=== PATIENT | female | born 2000 | race Hispanic/Latino ===

== ENCOUNTER 2018-09-14 17:35 | Emergency (ER) | payer OTHER, SELFPAY ==
--- OUTSIDE RECORDS SUMMARY | 2018-09-14 17:36 | XMS REPORT ---
:2000 Author Organization [facility] Address [address] [place] [address] Dr. Agudelo [address] [place] [id number] Care Team Providers Name Role Phone Unavailable Unavailable Unavailable Problems This patient has no known problems. Allergies, Adverse Reactions, Alerts This patient has no known allergies or adverse reactions. Medications This patient has no known medications.
[2018-09-14] MEDS ORDERED: NA CHLORIDE 0.9% 1,000 ML ONE ×2 (18:28→20:51)
[2018-09-14] MEDS ORDERED: METOCLOPRAMIDE 10 MG/2mL INJ ONE (18:28)
[2018-09-14 18:39] LABS: Absolute Lymphocytes (CBC) 0.8 K/uL (0.7-4.9); Absolute Monocytes 0.6 K/uL (0.1-1.3); Absolute Neutrophil 11.9 K/uL (1.8-8.0); Basophils % 0.1 % (0-1.3); Eosinophils % 0.4 % (0-4.4); Hematocrit 42.2 % (36.0-45.0); Lymphocytes % 5.6 % (15.3-44.8); MPV 9.2 fL (7.6-11.3); Monocytes % 4.8 % (3.3-12.3); RBC Red Blood Cell Count 4.86 M/uL (3.86-4.86)
[2018-09-14 19:00] LABS: ALT/SGPT 41 U/L (12-78); AST/SGOT 22 U/L (15-37); Albumin 4.1 g/dL (3.4-5.0); Alkaline Phosphatase 80 U/L (45-117); BUN Blood Urea Nitrogen 12 mg/dL (7-18); Bicarbonate 21 mmol/L (21-32); Bilirubin Direct 0.1 mg/dL (0-0.2); Bilirubin Total 0.6 mg/dL (0.2-1.0); Glucose Level 77 mg/dL (74-106); Lipase 95 U/L (73-393); Potassium 3.4 mmol/L (3.5-5.1); Protein, Total 8.8 g/dL (6.4-8.2); Sodium Level 140 mmol/L (136-145)
--- NOTE | 2018-09-14 20:29 | RAD REPORT ---
EXAM DESCRIPTION: US - Abdomen Exam Limited - 09/14/2018 7:51 pm CLINICAL HISTORY: Abdominal pain COMPARISON: None. FINDINGS: No gallstones, sludge or other abnormalities within the gallbladder lumen. There is no wal l thickening or pericholecystic fluid. No common duct stone or biliary tree dilatation identified. IMPRESSION: Normal gallbladder and biliary tree ultrasound.
[2018-09-14] MEDS ORDERED: MORPHINE 2 MG/ML SYR ONE (20:40)
[2018-09-14] MEDS ORDERED: DICYCLOMINE HCL 10 MG CAP ONE (20:40)
[2018-09-14 20:55] LABS: Urine Specific Gravity >1.030 (1.005-1.030)
[2018-09-14 20:56] LABS: Urine Blood 2+ (NEG); Urine Glucose NEGATIVE (NEG); Urine Protein 1+ (NEG); Urine pH 5.5 (5.0-7.0)
--- NOTE | 2018-09-14 22:09 | ER ---
Nurse's Notes [facility] Name: Sima Quinn Age: 17 yrs Sex: Female : 2000 Arrival Date: 09/14/2018 Time: 17:38 Bed 5 Private MD: Diagnosis: Vomiting;Diarrhea, unspecified;Generalized abdominal pain Presentation: 09/14 17:46 Presenting complaint: sister in law: she is throwing up and has diarrhea since early tw2 this morning around 3 am, abdominal pain, she has a hx of gastritis and she is also . Presenting complaint:. Transition of care: patient was not received from another setting of care. Onset of symptoms was September 14, 2018. Risk Assessment: Do you want to hurt yourself or someone else? Patient reports no desire to harm self or others. Initial Sepsis Screen: Does the patient meet any 2 criteria? No. Patient's initial sepsis screen is negative. Does the patient have a suspected source of infection? No. Patient's initial sepsis screen is negative. Care prior to arrival: None. 17:46 Method Of Arrival: Ambulatory tw2 17:46 Acuity: PARRIS 3 tw2 Triage Assessment: 17:47 General: Appears in no apparent distress. obese, Behavior is calm, cooperative, tw2 appropriate for age. Pain: Complains of pain in abdomen. GI: Reports lower abdominal pain, upper abdominal pain, diarrhea, nausea, vomiting. 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 - Social history:: Smoking status: . - Ebola Screening: : Patient denies travel to an Ebola-affected area in the 21 days before illness onset. Screenin:22 Abuse screen: Denies threats or abuse. Denies injuries from another. Nutritional hb screening: No deficits noted. Tuberculosis screening: No symptoms or risk factors identified. Fall Risk None identified. Assessment: 18:20 General: Appears in no apparent distress. Behavior is calm, cooperative. Pain: Pain hb currently is 3 out of 10 on a pain scale. Neuro: Level of Consciousness is awake, alert, obeys commands, Oriented to person, place, time, situation. Cardiovascular: Capillary refill < 3 seconds Patient's skin is warm and dry. Respiratory: Airway is patent Respiratory effort is even, unlabored, Respiratory pattern is regular, symmetrical. GI: Abdomen is non-distended, Bowel sounds present X 4 quads. Abd is soft and non tender X 4 quads. Reports lower abdominal pain, upper abdominal pain, diarrhea, nausea, vomiting. : No signs and/or symptoms were reported regarding the genitourinary system. EENT: No signs and/or symptoms were reported regarding the EENT system. Derm: Skin is intact, is healthy with good turgor, Skin is dry, Skin is pale, Skin temperature is warm. Musculoskeletal: No signs and/or symptoms reported regarding the musculoskeletal system. 19:49 Reassessment: Patient appears in no apparent distress at this time. No changes from ak1 previously documented assessment. Patient and/or family updated on plan of care and expected duration. Pain level reassessed. Patient is alert, oriented x 3, equal unlabored respirations, skin warm/dry/pink. pt to US and returned. 20:42 Reassessment: pt tolerated water PO. pt informed to "pump and dump" due to breast bb feeding. pt verbalized understanding. will continue to monitor. 22:34 Reassessment: Patient is alert, oriented x 3, equal unlabored respirations, skin bb warm/dry/pink. pt verbalized understanding of and agrees to plan of care discharge instructions given pt ambulated with steady gait to exit accompanied by spouse Patient states feeling better. Patient states symptoms have improved. Vital Signs: 17:48 BP 109 / 86; Pulse 114; Resp 17; Temp 98.6(TE); Pulse Ox 99% on R/A; Weight 77.11 kg tw2 (R); Height 5 ft. 2 in. (157.48 cm); Pain 9/10; 18:20 BP 119 / 76; Pulse 94; Resp 16; Pulse Ox 100% on R/A; hb 20:44 BP 126 / 84; Pulse 100; Resp 16; Temp 98.6; Pulse Ox 100% on R/A; Pain 0/10; bb 22:35 BP 125 / 77; Pulse 96; Resp 16 S; Temp 98.9(O); Pulse Ox 100% on R/A; bb 17:48 Body Mass Index 31.09 (77.11 kg, 157.48 cm) tw2 ED Course: 17:38 Patient arrived in ED. mr 17:47 Triage completed. tw2 17:48 Arm band placed on. tw2 17:51 Hank Emery PA is PHCP. jmm 17:51 Brian Menchaca MD is Attending Physician. jmm 18:18 Inserted saline lock: 20 gauge in right antecubital area, using aseptic technique. hb Blood collected. 18:20 Lynnette Doe, RN is Primary Nurse. hb 18:22 Patient has correct armband on for positive identification. Bed in low position. Call hb light in reach. Side rails up X 1. 19:02 Report given to Renae RODRIGUEZ and Renae RODRIGUEZ. sv 19:51 US Abdomen Limited In Process Unspecified. EDMS 20:22 Radiology exam delayed due to test not completed at this time. nj 21:00 CT Abd/Pelvis - W/Contrast In Process Unspecified. EDMS 21:00 CT completed. Patient tolerated procedure well. Patient moved back from CT. vm2 22:36 No provider procedures requiring assistance completed. IV discontinued, intact, bb bleeding controlled, No redness/swelling at site. Pressure dressing applied. Administered Medications: 18:25 Drug: NS 0.9% 1000 ml Route: IV; Rate: 1 bolus; Site: right antecubital; hb 19:51 Follow up: IV Status: Completed infusion; IV Intake: 1000ml ak1 18:25 Drug: Reglan 10 mg Route: IVP; Site: right antecubital; hb 19:51 Follow up: Response: No adverse reaction ak1 20:41 Drug: Bentyl 20 mg Route: PO; bb 20:42 Follow up: Response: No adverse reaction bb 20:41 Drug: NS 0.9% 1000 ml Route: IV; Rate: 1 bolus; Site: right antecubital; bb 22:37 Follow up: IV Status: Completed infusion; IV Intake: 1000ml bb 20:42 Drug: morphine 2 mg Route: IVP; Site: right antecubital; bb 20:42 Follow up: Response: No adverse reaction bb Intake: 19:51 IV: 1000ml; Total: 1000ml. ak1 22:37 IV: 1000ml; Total: 2000ml. bb Outcome: 22:08 Discharge ordered by . steve 22:36 Discharged to home ambulatory, with family. bb 22:36 Condition: stable 22:36 Discharge instructions given to patient, Instructed on discharge instructions, follow up and referral plans. medication usage, Demonstrated understanding of instructions, follow-up care, medications, Prescriptions given X 1. 22:36 Patient left the ED. bb Signatures: Dispatcher [employer] EDMS Becky Mosley, RN RN Hank Soriano PA PA jmm Rivera, Mary mr Richi, Ursula RN RN Evette Blair RN RN ak1 Lynnette Doe RN RN Tracie Lozoya RN RN tw2 Raymundo Virk [facility]
--- NOTE | 2018-09-14 22:10 | EDPHYS ---
Physician Documentation [facility] Name: Sima Quinn Age: 17 yrs Sex: Female : 2000 Arrival Date: 09/14/2018 Time: 17:38 Bed 5 Private MD: ED Physician Brian Menchaca HPI: 09/14 18:31 This 17 yrs old Female presents to ER via Ambulatory with complaints of jmm Vomiting/Diarrhea. 18:31 The patient presents to the emergency department with nausea, vomiting, diarrhea, jmm abdominal pain. Onset: The symptoms/episode began/occurred acutely, this morning. Possible causes: unknown. This is a 17 year old female with a history of gastritis that presents to the ED with complaints of abdominal pain, vomiting and diarrhea beginning this morning at approx 0300. Pain is localized to the epigastric region. Denies fever. Denies dysuria. . 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 - Social history:: Smoking status: . - Ebola Screening: : Patient denies travel to an Ebola-affected area in the 21 days before illness onset. ROS: 18:31 Constitutional: Negative for fever, chills, and weight loss, Cardiovascular: Negative jmm for chest pain, palpitations, and edema, Respiratory: Negative for shortness of breath, cough, wheezing, and pleuritic chest pain. 18:31 Abdomen/GI: Positive for abdominal pain, nausea and vomiting, diarrhea. 18:31 All other systems are negative. Exam: 18:31 Constitutional: This is a well developed, well nourished patient who is awake, alert, jmm and in no acute distress. Head/Face: atraumatic. Eyes: EOMI, no conjunctival erythema appreciated ENT: Moist Mucus Membranes Neck: Trachea midline, Supple Chest/axilla: Normal chest wall appearance and motion. Cardiovascular: Regular rate and rhythm. No edema appreciated Respiratory: Normal respirations, no respiratory distress appreciated Abdomen/GI: Non distended, soft 18:31 Back: Normal ROM Skin: General appearance color normal MS/ Extremity: Moves all extremities, no obvious deformities appreciated, no edema noted to the lower extremities Neuro: Awake and alert, normal gait Psych: Behavior is normal, Mood is normal, Patient is cooperative and pleasant 18:31 Abdomen/GI: Inspection: abdomen appears normal, Bowel sounds: normal, Palpation: soft, mild abdominal tenderness, in the right upper quadrant and left upper quadrant. Vital Signs: 17:48 BP 109 / 86; Pulse 114; Resp 17; Temp 98.6(TE); Pulse Ox 99% on R/A; Weight 77.11 kg tw2 (R); Height 5 ft. 2 in. (157.48 cm); Pain 9/10; 18:20 BP 119 / 76; Pulse 94; Resp 16; Pulse Ox 100% on R/A; hb 20:44 BP 126 / 84; Pulse 100; Resp 16; Temp 98.6; Pulse Ox 100% on R/A; Pain 0/10; bb 22:35 BP 125 / 77; Pulse 96; Resp 16 S; Temp 98.9(O); Pulse Ox 100% on R/A; bb 17:48 Body Mass Index 31.09 (77.11 kg, 157.48 cm) tw2 MDM: 17:53 Patient medically screened. [facility] 22:07 Data reviewed: vital signs, nurses notes. Counseling: I had a detailed discussion with stvee the patient and/or guardian regarding: the historical points, exam findings, and any diagnostic results supporting the discharge/admit diagnosis, the need for outpatient follow up, to return to the emergency department if symptoms worsen or persist or if there are any questions or concerns that arise at home. 09/14 18:09 Order name: Basic Metabolic Panel; Complete Time: 19:04 [facility] 09/14 18:09 Order name: CBC with Diff; Complete Time: 19:04 [facility] 09/14 18:09 Order name: Creatinine for Radiology; Complete Time: 19:04 [facility] 09/14 18:09 Order name: Hepatic Function; Complete Time: 19:04 [facility] 09/14 18:09 Order name: Lipase; Complete Time: 19:04 [facility] 09/14 20:44 Order name: Urine Dipstick--Ancillary (enter results); Complete Time: 21:03 ks 09/14 19:05 Order name: US Abdomen Limited; Complete Time: 20:43 [facility] 09/14 20:18 Order name: CT Abd/Pelvis - W/Contrast [facility] 09/14 20:44 Order name: Urine --Ancillary (enter results); Complete Time: 21:03 ks 09/14 18:09 Order name: IV Saline Lock; Complete Time: 18:26 [facility] 09/14 18:09 Order name: Labs collected and sent; Complete Time: 18:26 [facility] 09/14 20:01 Order name: PO challenge; Complete Time: 20:41 [facility] Administered Medications: 18:25 Drug: NS 0.9% 1000 ml Route: IV; Rate: 1 bolus; Site: right antecubital; hb 19:51 Follow up: IV Status: Completed infusion; IV Intake: 1000ml ak1 18:25 Drug: Reglan 10 mg Route: IVP; Site: right antecubital; hb 19:51 Follow up: Response: No adverse reaction ak1 20:41 Drug: Bentyl 20 mg Route: PO; bb 20:42 Follow up: Response: No adverse reaction bb 20:41 Drug: NS 0.9% 1000 ml Route: IV; Rate: 1 bolus; Site: right antecubital; bb 22:37 Follow up: IV Status: Completed infusion; IV Intake: 1000ml bb 20:42 Drug: morphine 2 mg Route: IVP; Site: right antecubital; bb 20:42 Follow up: Response: No adverse reaction bb Disposition: 09/14/18 22:08 Discharged to Home. Impression: Vomiting, Diarrhea, unspecified, Generalized abdominal pain. - Condition is Stable. - Discharge Instructions: Diarrhea, Adult, Nausea and Vomiting, Adult. - Prescriptions for Zofran ODT 4 mg Oral tablet,disintegrating - place 1 tablet by TRANSLINGUAL route every 4-6 hours; 20 tablet. - Medication Reconciliation Form, Thank You Letter, Antibiotic Education, Prescription Opioid Use form. - Follow up: Private Physician; When: 2 - 3 days; Reason: Recheck today's complaints, Continuance of care, Re-evaluation by your physician. Signatures: Dispatcher [employer] EDMS Hank Emery PA PA Ursula Hubbard RN RN Lynnette Sandoval RN RN Tracie Overton RN RN tw2 Krenek, Evette RN ak1 Corrections: (The following items were deleted from the chart) 22:36 22:08 09/14/2018 22:08 Discharged to Home. Impression: Vomiting; Diarrhea, unspecified; bb Generalized abdominal pain. Condition is Stable. Forms are Medication Reconciliation Form, Thank You Letter, Antibiotic Education, Prescription Opioid Use. Follow up: Private Physician; When: 2 - 3 days; Reason: Recheck today's complaints, Continuance of care, Re-evaluation by your physician. steve
--- NOTE | 2018-09-15 13:38 | RAD REPORT ---
EXAM DESCRIPTION: CT - Abdomen Pelvis W Contrast - 09/14/2018 9:45 pm CLINICAL HISTORY: The patient is 17 years old and is Female; abdominal pain TECHNIQUE: Axial computed tomography images of the abdomen and pelvis with intravenous contrast. S agittal and coronal reformatted images were created and reviewed. This CT exam was performed using one or more of the following dose reduction techniques: automated exposure control, adjustment of t he mA and/or kV according to patient size, and/or use of iterative reconstruction technique. COMPARISON: None. FINDINGS: LUNG BASES: Unremarkable. No mass. No consolidation. ABDOMEN: LIVER: Unremarkable. No mass. GALLBLADDER AND BILE DUCTS: Unremarkable. No calcified stones. No ductal dilation. PANCREAS: Unremarkable. No mass. No ductal dilation. SPLEEN: Unremarkable. No splenomegaly. ADRENALS: Unremarkable. No mass. KIDNEYS AND URETERS: Unremarkable. No solid mass. No hydronephrosis. STOMACH AND BOWEL: Unremarkable. No obstruction. No mucosal thickening. PELVIS: APPENDIX: The appendix is seen and is within normal limits. BLADDER: The bladder is decompressed. REPRODUCTIVE: Mild heterogenous enlargement of the uterus is small amount of endometrial fluid. ABDOMEN and PELVIS: INTRAPERITONEAL SPACE: Unremarkable. No free air. No significant fluid collection. BONES/JOINTS: No acute fracture. No dislocation. SOFT TISSUES: Unremarkable. VASCULATURE: Unremarkable. No abdominal aortic aneurysm. LYMPH NODES: Unremarkable. No enlarged lymph nodes. IMPRESSION: 1. No acute abdominal or pelvic abnormality. 2. Incompletely evaluated physiologic pelvic changes with endometrial thickening/fluid. Electronically signed by: Scout Jimenez DO 09/14/2018 9:22 PM CDT Due to temporary technical issues with the PACS/Fluency reporting system, reports are being signed by the in house radiologist as a courtesy to ensure prompt reporting. The interpreting radiologist is f ully responsible for the content of the report.
== END 2018-09-14 22:36 | disposition home or self-care (01) ==
LOC: ER 17:35
DX: R19.7 Diarrhea, unspecified (principal); R10.84 Generalized abdominal pain
CPT/HCPCS: 36415; 74177; 76705; 80048; 80076; 81003; 81025; 83690; 85025; J2270; J2765; J7030; Q9967

== ENCOUNTER 2018-11-28 14:36 | Emergency (ER) | payer OTHER, SELFPAY ==
--- OUTSIDE RECORDS SUMMARY | 2018-11-28 14:38 | XMS REPORT ---
:2000 Author Organization [facility] Address [address] [place] [address] Care Team Providers Name Role Phone Unavailable Unavailable Unavailable Problems This patient has no known problems. Allergies, Adverse Reactions, Alerts This patient has no known allergies or adverse reactions. Medications This patient has no known medications.
[2018-11-28 15:34] LABS: Absolute Lymphocytes (CBC) 0.9 K/uL (0.7-4.9); Basophils % 0.3 % (0-1.3); Eosinophils % 0.7 % (0-4.4); Hematocrit 41.8 % (36.0-45.0); Lymphocytes % 9.5 % (15.3-44.8); MPV 9.5 fL (7.6-11.3); Monocytes % 5.6 % (3.3-12.3); RBC Red Blood Cell Count 4.86 M/uL (3.86-4.86)
[2018-11-28 15:51] LABS: ALT/SGPT 62 U/L (12-78); AST/SGOT 26 U/L (15-37); Albumin 3.6 g/dL (3.4-5.0); Alkaline Phosphatase 60 U/L (45-117); BUN Blood Urea Nitrogen 12 mg/dL (7-18); Bicarbonate 26 mmol/L (21-32); Bilirubin Direct 0.2 mg/dL (0-0.2); Bilirubin Total 0.5 mg/dL (0.2-1.0); Glucose Level 87 mg/dL (74-106); Lipase 89 U/L (73-393); Potassium 3.9 mmol/L (3.5-5.1); Protein, Total 7.4 g/dL (6.4-8.2); Sodium Level 141 mmol/L (136-145)
--- NOTE | 2018-11-28 16:30 | RAD REPORT ---
EXAM DESCRIPTION: US - Abdomen Exam Limited - 11/28/2018 4:20 pm CLINICAL HISTORY: Abdominal pain. COMPARISON: August 2018 FINDINGS: The gallbladder wall is not thickened. A gallstone is not seen. The biliary tree is normal caliber. IMPRESSION: Unremarkable gallbladder ultrasound.
[2018-11-28 16:38] LABS: Urine Blood NEGATIVE (NEG); Urine Glucose NEGATIVE (NEG); Urine Protein 1+ (NEG); Urine pH 7.5 (5.0-7.0)
[2018-11-28 16:41] LABS: Urine Bacteria <20 /HPF (<20); Urine Culture Reflex Order NOT NEEDED; Urine Mucus 1+ /HPF (NONE SEEN); Urine RBC <5 /HPF (NONE SEEN)
--- NOTE | 2018-11-28 17:38 | ER ---
Nurse's Notes [facility] Name: Sima Quinn Age: 18 yrs Sex: Female : 2000 Arrival Date: 11/28/2018 Time: 14:37 Bed 19 Private MD: Diagnosis: Other abdominal pain Presentation: 11/28 15:01 Presenting complaint: Patient states: epigastric pain and vomiting since yesterday, hx iw of gastric ulcer. Transition of care: patient was not received from another setting of care. Onset of symptoms was November 27, 2018. Risk Assessment: Do you want to hurt yourself or someone else? Patient reports no desire to harm self or others. Initial Sepsis Screen: Does the patient have a suspected source of infection? No. Patient's initial sepsis screen is negative. Care prior to arrival: None. 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 - Social history:: Smoking status: Patient/guardian denies using tobacco. - Ebola Screening: : Patient negative for fever greater than or equal to 101.5 degrees Fahrenheit, and additional compatible Ebola Virus Disease symptoms Patient denies exposure to infectious person Patient denies travel to an Ebola-affected area in the 21 days before illness onset No symptoms or risks identified at this time. Screenin:17 Abuse screen: Denies threats or abuse. Denies injuries from another. Nutritional aj screening: No deficits noted. Tuberculosis screening: No symptoms or risk factors identified. Fall Risk None identified. Assessment: 15:26 General: Appears in no apparent distress. comfortable, Behavior is calm, cooperative, aj appropriate for age. Pain: Complains of pain in right upper quadrant and left upper quadrant. Neuro: Level of Consciousness is awake, alert, obeys commands, Oriented to person, place, time, situation, Appropriate for age. Respiratory: Airway is patent Respiratory effort is even, unlabored, Respiratory pattern is regular, symmetrical. GI: Abdomen is non-distended, obese, Bowel sounds present X 4 quads. Abd is soft and non tender. GI: Reports upper abdominal pain, nausea, vomiting. Derm: Skin is intact, is healthy with good turgor, Skin is pink, warm \T\ dry. normal. 17:42 Reassessment: Patient appears in no apparent distress at this time. No changes from aj previously documented assessment. Patient and/or family updated on plan of care and expected duration. Pain level reassessed. Patient is alert, oriented x 3, equal unlabored respirations, skin warm/dry/pink. Patient denies pain at this time. Patient states feeling better. Vital Signs: 15:08 BP 129 / 75; Pulse 98; Resp 16; Temp 98.6(TE); Pulse Ox 99% on R/A; Weight 77.11 kg; iw Height 5 ft. 3 in. (160.02 cm); Pain 10/10; 16:11 BP 115 / 75; Pulse 87; Resp 16; Temp 98.7; Pulse Ox 100% on R/A; mh5 16:17 BP 123 / 82; Pulse 76; Resp 16; Pulse Ox 100% on R/A; aj 17:21 BP 104 / 68; Pulse 88; Resp 15; Temp 97.9(TE); Pulse Ox 100% on R/A; mh5 15:08 Body Mass Index 30.11 (77.11 kg, 160.02 cm) ED Course: 14:37 Patient arrived in ED. as 14:50 Hank Emery PA is PHCP. [facility] 14:50 Olvin Guan MD is Attending Physician. [facility] 15:00 Debbie Mello, JENNIFER is Primary Nurse. aj 15:08 Triage completed. iw 15:08 Arm band placed on. iw 15:08 Patient has correct armband on for positive identification. Bed in low position. Call 5 light in reach. Side rails up X 1. Pulse ox on. NIBP on. 15:20 Inserted saline lock: 22 gauge in left antecubital area, using aseptic technique. Blood aj collected. 15:25 Basic Metabolic Panel Sent. aj 15:25 Basic Metabolic Panel Sent. aj 15:25 CBC with Diff Sent. aj 15:25 Creatinine for Radiology Sent. aj 15:25 Hepatic Function Sent. aj 15:25 Lipase Sent. aj 16:12 Urine collected: clean catch specimen, clear. 5 16:14 Urine Microscopic Only Sent. 5 16:21 US Abdomen Limited In Process Unspecified. EDMS 16:21 Ultrasound completed. Patient tolerated well. sg3 17:37 Hayden Guzman MD is Referral Physician. stephen 17:42 No provider procedures requiring assistance completed. IV discontinued. aj Administered Medications: No medications were administered Outcome: 17:38 Discharge ordered by MD. steve 17:43 Discharged to home ambulatory. aj 17:43 Condition: good 17:43 Discharge instructions given to patient, Instructed on discharge instructions, follow up and referral plans. medication usage, Demonstrated understanding of instructions, follow-up care, medications, Prescriptions given X 2. 17:44 Patient left the ED. samantha Signatures: Dispatcher [employer] Debbie Guadarrama, Hank Zurita RN, PA PA jmm Martinez, Amelia as Williams, Irene, Susi Welch RN 5 Janna Snyder sg3 Corrections: (The following items were deleted from the chart) 17:26 17:21 Pulse 88bpm; Resp 15bpm; Pulse Ox 100% RA; Temp 97.9F Temporal; 5 5
--- NOTE | 2018-11-28 17:38 | EDPHYS ---
Physician Documentation [facility] Name: Sima Quinn Age: 18 yrs Sex: Female : 2000 Arrival Date: 11/28/2018 Time: 14:37 Bed 19 Private MD: ED Physician Olvin Guan HPI: 11/28 14:50 This 18 yrs old Female presents to ER via Ambulatory with complaints of jmm Abdominal Pain. 14:50 The patient presents with abdominal pain in the epigastric area. Onset: The jmm symptoms/episode began/occurred gradually, 1 day(s) ago. The symptoms do not radiate. Associated signs and symptoms: Pertinent positives: nausea and vomiting, diarrhea. Modifying factors: The symptoms are alleviated by nothing, the symptoms are aggravated by food. The patient has experienced similar episodes in the past. This is a 18 year old female with a history of gastritis that presents to the ED with complaints of epigastric abdominal pain for the past day with vomiting and diarrhea. . SENIOR FINANCIAL: 15:08 LMP N/A - control method iw Historical: - Allergies: 15:08 No Known Allergies; iw - Home Meds: 15:08 None [Active]; iw - PMHx: 15:08 gastritis; iw - PSHx: 15:08 None; iw - Immunization history:: Adult Immunizations unknown. - Social history:: Smoking status: Patient/guardian denies using tobacco. - Ebola Screening: : Patient negative for fever greater than or equal to 101.5 degrees Fahrenheit, and additional compatible Ebola Virus Disease symptoms Patient denies exposure to infectious person Patient denies travel to an Ebola-affected area in the 21 days before illness onset No symptoms or risks identified at this time. ROS: 14:50 Constitutional: Negative for fever, chills, and weight loss, Cardiovascular: Negative jmm for chest pain, palpitations, and edema, Respiratory: Negative for shortness of breath, cough, wheezing, and pleuritic chest pain. 14:50 Abdomen/GI: Positive for abdominal pain, nausea, vomiting. 14:50 All other systems are negative. Exam: 14:50 Head/Face: atraumatic. Eyes: EOMI, no conjunctival erythema appreciated ENT: Moist jmm Mucus Membranes Neck: Trachea midline, Supple Chest/axilla: Normal chest wall appearance and motion. Cardiovascular: Regular rate and rhythm. No edema appreciated Respiratory: Normal respirations, no respiratory distress appreciated 14:50 Constitutional: The patient appears in no acute distress, alert, awake. 14:50 Abdomen/GI: Inspection: abdomen appears normal, Bowel sounds: normal, Palpation: soft, mild abdominal tenderness, in the epigastric area and right upper quadrant. 14:50 Musculoskeletal/extremity: ROM: intact in all extremities. 14:50 Skin: Appearance: Color: normal in color. 14:50 Neuro: Orientation: is normal, Mentation: is normal, Memory: is normal. 14:50 Psych: Behavior/mood is pleasant, cooperative. Vital Signs: 15:08 BP 129 / 75; Pulse 98; Resp 16; Temp 98.6(TE); Pulse Ox 99% on R/A; Weight 77.11 kg; iw Height 5 ft. 3 in. (160.02 cm); Pain 10/10; 16:11 BP 115 / 75; Pulse 87; Resp 16; Temp 98.7; Pulse Ox 100% on R/A; mh5 16:17 BP 123 / 82; Pulse 76; Resp 16; Pulse Ox 100% on R/A; aj 17:21 BP 104 / 68; Pulse 88; Resp 15; Temp 97.9(TE); Pulse Ox 100% on R/A; mh5 15:08 Body Mass Index 30.11 (77.11 kg, 160.02 cm) iw MDM: 15:11 Patient medically screened. [facility] 17:35 Data reviewed: vital signs, nurses notes. Counseling: I had a detailed discussion with steve the patient and/or guardian regarding: the historical points, exam findings, and any diagnostic results supporting the discharge/admit diagnosis, the need for outpatient follow up, to return to the emergency department if symptoms worsen or persist or if there are any questions or concerns that arise at home. 17:43 ED course: US normal. Symptoms relieved in the ED. Patient is able to tolerate PO. [facility] Patient is alert and non toxic in appearance. Labs unremarkable. Patient advised to follow up with GI and otherwise given strict return precautions. Patient understood and agrees with the plan of care. . 11/28 14:42 Order name: Urine Microscopic Only; Complete Time: 17:03 snw 11/28 15:11 Order name: Basic Metabolic Panel [facility] 11/28 15:11 Order name: CBC with Diff; Complete Time: 16:27 [facility] 11/28 15:11 Order name: Creatinine for Radiology; Complete Time: 16:27 [facility] 11/28 15:11 Order name: Hepatic Function; Complete Time: 16:27 [facility] 11/28 15:11 Order name: Lipase; Complete Time: 16:27 [facility] 11/28 14:42 Order name: Urine Test (obtain specimen); Complete Time: 16:13 [facility] 11/28 14:42 Order name: Urine Dipstick-Ancillary (obtain specimen); Complete Time: 16:13 [facility] 11/28 15:11 Order name: IV Saline Lock; Complete Time: 15:25 [facility] 11/28 15:11 Order name: Labs collected and sent; Complete Time: 15:25 [facility] 11/28 15:11 Order name: US Abdomen Limited; Complete Time: 16:35 [facility] 11/28 15:12 Order name: Basic Metabolic Panel; Complete Time: 16:27 [facility] 11/28 16:17 Order name: Urine Dipstick--Ancillary (enter results); Complete Time: 17:03 11/28 16:17 Order name: Urine --Ancillary (enter results); Complete Time: 17:03 11/28 17:08 Order name: PO challenge; Complete Time: 17:40 jm Administered Medications: No medications were administered Disposition: 17:58 Co-signature as Attending Physician, Olvin Guan MD. rn Disposition: 11/28/18 17:38 Discharged to Home. Impression: Other abdominal pain. - Condition is Stable. - Discharge Instructions: Abdominal Pain, Adult. - Prescriptions for Zofran ODT 4 mg Oral tablet,disintegrating - place 1 tablet by TRANSLINGUAL route every 4-6 hours; 20 tablet. Nexium 20 mg Oral Capsule - take 1 capsule by ORAL route once daily; 20 capsule. - Medication Reconciliation Form, Thank You Letter, Antibiotic Education, Prescription Opioid Use form. - Follow up: Hayden Guzman MD; When: 2 - 3 days; Reason: Recheck today's complaints, Continuance of care, Re-evaluation by your physician. Signatures: Dispatcher [employer] Debbie Guadarrama RN RN Vianca De Los Santos, MATERIAL HANDLING [employer]QUIPMENT STEVEDORE-C [employer]QUIP[employer] STEVEDORE-[employer] Hank Emery PA PA jmm Williams, Irene, RN RN Olvin Cates MD MD sock turner: (The following items were deleted from the chart) 17:44 17:38 11/28/2018 17:38 Discharged to Home. Impression: Other abdominal pain. Condition aj is Stable. Forms are Medication Reconciliation Form, Thank You Letter, Antibiotic Education, Prescription Opioid Use. Follow up: Hayden Guzman; When: 2 - 3 days; Reason: Recheck today's complaints, Continuance of care, Re-evaluation by your physician. steve
== END 2018-11-28 17:44 | disposition home or self-care (01) ==
LOC: ER 14:36
DX: R10.9 Unspecified abdominal pain (principal)
CPT/HCPCS: 36415; 76705; 80048; 80076; 81003; 81015; 81025; 83690; 85025; 99284